=== PATIENT | male | born 1975 | race Hispanic/Latino ===

== ENCOUNTER 2018-03-03 12:53 | Emergency (ER) | payer MEDICAID ==
[2018-03-03 13:01] VITALS: BP 136/90; PULSE 96; RESP 18; TEMP 97.9; O2SAT 95
[2018-03-03] MEDS ORDERED: Sodium Chloride 0.9% 1,000 ML IV ONE (13:56)
--- NOTE | 2018-03-03 14:12 | C.PDOC ---
History Of Present Illness 42 year old male with a history of asthma presents to the ED for evaluation of shortness of breath and palpitations prior to arrival that began today. Patient reports he woke up, didn't have time to eat, was driving to work and had a sudden onset of total body numbness associated with light-headiness, feeling hot and cold, sweaty, and shortness of breath. He notes using his Albuterol inhaler and shortly after he felt palpitations. In the ED the patient notes feels better, still sweating but not experiencing palpitations or shortness of breath. Prior to arrival patient ate a bagel. Sugar was measured at 192 in the ED. Denies fever, nausea, vomiting, headache, chest pain, and any other associated symptoms. Time Seen by Provider: 03/03/18 13:42 Chief Complaint (Nursing): Palpitations History Per: Patient History/Exam Limitations: no limitations Onset/Duration Of Symptoms: Hrs Current Symptoms Are (Timing): Still Present Past Medical History Reviewed: Historical Data, Nursing Documentation, Vital Signs Vital Signs: Last Vital Signs Temp 97.9 F 03/03/18 12:58 Pulse 96 H 03/03/18 12:58 Resp 18 03/03/18 12:58 BP 136/90 03/03/18 12:58 Pulse Ox 95 03/03/18 12:58 - Medical History PMH: Asthma Family History: States: Unknown Family Hx - Social History Hx Alcohol Use: No Hx Substance Use: No - Immunization History Hx Tetanus Toxoid Vaccination: No Hx Influenza Vaccination: No Hx Pneumococcal Vaccination: No Review Of Systems Constitutional: Negative for: Fever Cardiovascular: Positive for: Palpitations. Negative for: Chest Pain Respiratory: Positive for: Shortness of Breath Gastrointestinal: Negative for: Nausea, Vomiting Neurological: Negative for: Headache Physical Exam - Physical Exam Appears: Well, Non-toxic, No Acute Distress Skin: Normal Color, Warm, Other (clammy skin.) Head: Atraumatic, Normacephalic Eye(s): bilateral: Normal Inspection Oral Mucosa: Moist Neck: Normal ROM, Supple Chest: Symmetrical, No Deformity Cardiovascular: Rhythm Regular, No Murmur Respiratory: Normal Breath Sounds, No Rales, No Rhonchi, No Wheezing Gastrointestinal/Abdominal: Normal Exam, Soft, No Tenderness Extremity: Normal ROM, No Pedal Edema, No Swelling Neurological/Psych: Oriented x3, Normal Speech ED Course And Treatment ECG Rhythm: Sinus Rhythm ECG Interpretation: No Acute Changes Rate From EC O2 Sat by Pulse Oximetry: 95 (RA) Pulse Ox Interpretation: Normal Reevaluation Time: 14:22 Reassessment Condition: Improved (Patient ate a sandwich and states that he feels better. He is refusing any labs or IV fluids.) Medical Decision Making Medical Decision Making: Plan: -EKG -Blood sent. -Urinalysis. Progress/Update: Patient reports feeling better. Patient stable for discharge home. Disposition Counseled Patient/Family Regarding: Need For Followup - Disposition Referrals: [facility] [Outside] Disposition: HOME/ ROUTINE Disposition Time: 14:23 Condition: IMPROVED Instructions: Palpitations Forms: [facility] ([place]) - Clinical Impression Clinical Impression: Palpitations - Scribe Statement The provider has reviewed the documentation as recorded by the Scribe (Lovely Carrera) Provider Attestation: All medical record entries made by the Scribe were at my direction and personally dictated by me. I have reviewed the chart and agree that the record accurately reflects my personal performance of the history, physical exam, medical decision making, and the department course for this patient. I have also personally directed, reviewed, and agree with the discharge instructions and disposition.
--- NOTE | 2018-03-04 12:05 | CARD ---
APPROVED REPORT Date of service: 03/03/2018 EKG Measurement Heart [id number] <Conclusion> Normal sinus rhythm Normal ECG
== END 2018-03-03 14:27 | disposition home or self-care (01) ==
LOC: C.ER 12:53
DX: R00.2 Palpitations (principal)